=== PATIENT | male | born 1975 | race Caucasian/White ===

== ENCOUNTER 2017-12-08 11:14 | Emergency (ER) | payer SELFPAY ==
[~2017-12-08] VITALS: Ht 182.9 cm; Wt 102.1 kg
--- NOTE | 2017-12-08 11:30 | NUR ---
[id number]/[employer] FROM SENIOR [facility]IVING: SKIN BURN TO LLE. NOTED ETOH. VSS. SEEN BY BAKING ASSISTANT FOR EVAL. SAFETY AND COMFORT MEASURES PROVIDED. REMAINS ON CUFFS, [employer] OFFICERS AT BS.
--- NOTE | 2017-12-08 11:48 | NUR ---
IV ACCESS STARTED. BLOOD DRAWN FOR LABS. MEDICATED ORDERED.
[2017-12-08 11:52] LABS: BASOPHILS % (AUTO) 0.5 % (0.0-2.0); EOSINOPHILS % (AUTO) 9.6 % (0.0-6.0); HEMATOCRIT 48 % (39-51); HEMOGLOBIN 16.3 g/dL (13.5-17.5); LYMPHOCYTES # (AUTO) 1.7 /CMM (0.8-4.8); LYMPHOCYTES % (AUTO) 31.2 % (20.0-44.0); MEAN CORPUSCULAR HGB CONC 34 g/dl (31.0-36.0); MEAN CORPUSCULAR VOLUME 96 fL (80-96); MONOCYTES # (AUTO) 0.5 /CMM (0.1-1.30); MONOCYTES % (AUTO) 9.2 % (2.0-12.0); NEUTROPHILS # (AUTO) 2.8 /CMM (1.8-8.9); NEUTROPHILS % (AUTO) 49.5 % (43.0-81.0); PLATELET COUNT (AUTO) 241 /CMM (150-450); RDW COEFFICIENT OF VARIATION 12.6 (11.5-15.0); RED BLOOD CELL COUNT(AUTO) 4.96 MIL/uL (4.5-6.0); WHITE BLOOD COUNT (AUTO) 5.6 K/uL (4.3-11.0)
[2017-12-08 12:00] LABS: CALCIUM, SERUM 8.2 mg/dL (8.5-10.1); CREATININE 1.2 mg/dL (0.6-1.3); POTASSIUM 3.8 mmol/L (3.5-5.1)
[2017-12-08] MEDS ORDERED: TDAP [DIPH/PERTUSSIS/TET] 0.5 ML VIAL IM ONE ×2 (12:00→12:04)
[2017-12-08] MEDS ORDERED: IV NS 0.9% 1,000 ML BAG IV ONE (12:00)
[2017-12-08] MEDS ORDERED: PANTOPRAZOLE 80 MG in IV NS 0.9% 500 ML IV ONE (12:00)
[2017-12-08] MEDS ORDERED: SILVER SULFADIAZINE CREAM 25 GM TUBE TP ONE (12:00)
[2017-12-08] MEDS ORDERED: SILVER SULFADIAZINE CREAM 25 GM TUBE ONE (12:04)
[2017-12-08 12:06] LABS: ALBUMIN 3.8 g/dL (3.4-5.0); BILIRUBIN,DIRECT 0.1 mg/dL (0.0-0.2); BILIRUBIN,TOTAL 0.2 mg/dL (0.2-1.0); TOTAL PROTEIN, SERUM 6.6 g/dL (6.4-8.2)
[2017-12-08 12:08] LABS: INR 0.91 (0.85-1.15)
--- NOTE | 2017-12-08 12:44 | NUR ---
IV removed. Catheter intact and site benign. Pressure and 4x4 applied to site. No bleeding noted.
[2017-12-08 12:46] VITALS: BP 122/88
--- NOTE | 2017-12-08 12:46 | NUR ---
Patient discharged to home in stable condition. Written and verbal after care instructions given. Patient verbalizes understanding of instruction.
== END 2017-12-08 12:48 ==
LOC: ER 11:21
DX: T24.202A Burn of second degree of unspecified site of left lower limb, except ankle and foot, initial encounter (principal); K29.70 Gastritis, unspecified, without bleeding; F10.10 Alcohol abuse, uncomplicated; Y90.6 Blood alcohol level of 120-199 mg/100 ml; Z23 Encounter for immunization; X08.8XXA Exposure to other specified smoke, fire and flames, initial encounter; Y93.89 Activity, other specified; Y92.89 Other specified places as the place of occurrence of the external cause; Y99.8 Other external cause status
CPT/HCPCS: 36415; 71045; 80048; 80076; 85025; 85730; 90715; 96365; 99285; A4606; A6403; C9113; G0480; J7030; J7040; Z7610

== ENCOUNTER 2018-02-19 12:22 | Emergency (ER) | payer MEDICAID ==
[~2018-02-19] VITALS: Ht 182.9 cm; Wt 90.7 kg
[2018-02-19 12:25] VITALS: BP 146/97
[2018-02-19] MEDS ORDERED: oxyCODONE/APAP (5/325 MG) 1 UDTAB TABLET ONE (12:58)
[2018-02-19] MEDS ORDERED: OLANZAPINE 10 MG VIAL IM ONE ×2 (12:58→13:00)
[2018-02-19] MEDS ORDERED: WATER FOR INJECTION,STERILE 10 ML ONE (12:58)
[2018-02-19] MEDS ORDERED: oxyCODONE/APAP (5/325 MG) 1 UDTAB TABLET PO ONE (13:00)
[2018-02-19 13:03] LABS: BASOPHILS % (AUTO) 0.4 % (0.0-2.0); EOSINOPHILS % (AUTO) 0.6 % (0.0-6.0); HEMATOCRIT 49 % (39-51); HEMOGLOBIN 16.6 g/dL (13.5-17.5); LYMPHOCYTES # (AUTO) 0.8 /CMM (0.8-4.8); LYMPHOCYTES % (AUTO) 11.8 % (20.0-44.0); MEAN CORPUSCULAR HEMOGLOBIN 32 PG (26.0-33.0); MEAN CORPUSCULAR HGB CONC 34 g/dl (31.0-36.0); MEAN CORPUSCULAR VOLUME 93 fL (80-96); MONOCYTES # (AUTO) 0.7 /CMM (0.1-1.30); MONOCYTES % (AUTO) 9.6 % (2.0-12.0); NEUTROPHILS # (AUTO) 5.6 /CMM (1.8-8.9); NEUTROPHILS % (AUTO) 77.6 % (43.0-81.0); PLATELET COUNT (AUTO) 223 /CMM (150-450); RDW COEFFICIENT OF VARIATION 11.2 (11.5-15.0); RED BLOOD CELL COUNT(AUTO) 5.27 MIL/uL (4.5-6.0); WHITE BLOOD COUNT (AUTO) 7.1 K/uL (4.3-11.0)
[2018-02-19 13:14] LABS: CALCIUM, SERUM 8.9 mg/dL (8.5-10.1); CARBON DIOXIDE 27 mmol/L (21-32); CHLORIDE 102 mmol/L (98-107); CREATININE 0.9 mg/dL (0.6-1.3); GLUCOSE 94 mg/dL (74-106); POTASSIUM 3.6 mmol/L (3.5-5.1); SODIUM SERUM 136 mmol/L (136-145); UREA NITROGEN, BLOOD 18 mg/dL (7-18)
[2018-02-19 13:20] LABS: ACETAMINOPHEN 0 ug/ml (10-30); ALANINE AMINOTRANSFERASE 36 U/L (12-78); ALBUMIN 3.9 g/dL (3.4-5.0); ALCOHOL, BLOOD < 3 mg/dL (0-0); ALKALINE PHOSPHATASE 72 U/L (46-116); ASPARTATE AMINOTRANSFERASE 25 U/L (15-37); BILIRUBIN,DIRECT 0.1 mg/dL (0.0-0.2); BILIRUBIN,TOTAL 0.5 mg/dL (0.2-1.0); SALICYLATE 3.2 mg/dL (2.8-20.0); TOTAL PROTEIN, SERUM 6.7 g/dL (6.4-8.2)
[2018-02-19 14:02] LABS: APPEARANCE,URINE CLEAR (CLEAR); BILIRUBIN,URINE NEGATIVE (NEGATIVE); BLOOD, URINE NEGATIVE Ery/uL (NEGATIVE); COLOR,URINE YELLOW (YELLOW); KETONES,URINE 1+ (NEGATIVE); LEUKOCYTE ESTERASE ,URINE NEGATIVE (NEGATIVE); NITRITE, URINE NEGATIVE (NEGATIVE); PH,URINE 6.5 (5.0-8.0); PROTEIN,URINE NEGATIVE (NEGATIVE); UGLUCOSE NEGATIVE (NEGATIVE); UROBILINOGEN,URINE 0.2 EU/dL (0.2)
[2018-02-19 15:18] LABS: RBC,URINE 0-2 /HPF (0-2); WBC,URINE 0-2 /HPF (0-3)
[2018-02-19 15:19] LABS: BACTERIA,URINE None seen /HPF (None Seen); SQUAMOUS EPITHELIAL CELL,UR 0-2 /HPF (None Seen)
== END 2018-02-19 17:42 | disposition home or self-care (01) ==
LOC: ER 12:24
DX: F15.10 Other stimulant abuse, uncomplicated (principal); R45.851 Suicidal ideations; L55.0 Sunburn of first degree; F17.200 Nicotine dependence, unspecified, uncomplicated; F90.9 Attention-deficit hyperactivity disorder, unspecified type; F43.10 Post-traumatic stress disorder, unspecified
CPT/HCPCS: 36415; 80048; 80076; 80305; 80329; 81001; 85025; 96372; 99284; 99406; A4606; G0480 ×2; J3490; Z7610; 81000-TC

== ENCOUNTER → 2018-02-26 | Emergency (ER) | payer BC, MEDICAID ==
[~2018-02-26] VITALS: Ht 182.9 cm; Wt 108.9 kg
[~2018-02-26] MED LIST: POTASSIUM CHLORIDE 20 MEQ TAB.PRT.SR PO ONE; oxyCODONE/APAP (5/325 MG) 1 UDTAB TABLET ONE; oxyCODONE/APAP (5/325 MG) 1 UDTAB TABLET PO ONE
[2018-02-26 14:35] LABS: BASOPHILS % (AUTO) 0.5 % (0.0-2.0); EOSINOPHILS % (AUTO) 0.4 % (0.0-6.0); HEMATOCRIT 45 % (39-51); LYMPHOCYTES # (AUTO) 0.8 /CMM (0.8-4.8); LYMPHOCYTES % (AUTO) 16.1 % (20.0-44.0); MEAN CORPUSCULAR HEMOGLOBIN 31 PG (26.0-33.0); MEAN CORPUSCULAR HGB CONC 33 g/dl (31.0-36.0); MEAN CORPUSCULAR VOLUME 92 fL (80-96); MONOCYTES # (AUTO) 0.7 /CMM (0.1-1.30); MONOCYTES % (AUTO) 13.9 % (2.0-12.0); NEUTROPHILS # (AUTO) 3.6 /CMM (1.8-8.9); NEUTROPHILS % (AUTO) 69.1 % (43.0-81.0); PLATELET COUNT (AUTO) 296 /CMM (150-450); RDW COEFFICIENT OF VARIATION 11.2 (11.5-15.0); WHITE BLOOD COUNT (AUTO) 5.1 K/uL (4.3-11.0)
[2018-02-26 14:48] LABS: ALBUMIN 3.8 g/dL (3.4-5.0); BILIRUBIN,DIRECT 0.1 mg/dL (0.0-0.2); BILIRUBIN,TOTAL 0.2 mg/dL (0.2-1.0); CALCIUM, SERUM 8.5 mg/dL (8.5-10.1); POTASSIUM 3.3 mmol/L (3.5-5.1); SALICYLATE 3.4 mg/dL (2.8-20.0); TOTAL PROTEIN, SERUM 6.6 g/dL (6.4-8.2)
--- NOTE | 2018-02-26 15:48 | NUR ---
CALLED [facility] SIGNAL OPERATOR ETA OF 45 MINS WAS GIVEN.
--- NOTE | 2018-02-26 17:26 | NUR ---
PT SEEN BY PET TEAM NURSE WILL GO TO OUT LINING FACILITY ONCE DRUG SCREEN COMPLETED. URINE SENT FOR DRUG SCREEN PT PAIN ADDRESSED WITH MEDICATION REMAINS COOPEATIVE.
[2018-02-26 17:31] LABS: APPEARANCE,URINE Clear (CLEAR); BILIRUBIN,URINE Negative (NEGATIVE); BLOOD, URINE Negative Ery/uL (NEGATIVE); COLOR,URINE Yellow (YELLOW); KETONES,URINE Negative (NEGATIVE); LEUKOCYTE ESTERASE ,URINE Negative (NEGATIVE); NITRITE, URINE Negative (NEGATIVE); PH,URINE 5.5 (5.0-8.0); PROTEIN,URINE Negative (NEGATIVE); UGLUCOSE Negative (NEGATIVE); UROBILINOGEN,URINE 0.2 EU/dL (0.2)
--- NOTE | 2018-02-26 18:35 | NUR ---
CALLED [facility] FOR TRANSPORT ETA 1999 WAS GIVEN. TRIP#[id number]
--- NOTE | 2018-02-26 19:42 | NUR ---
REPORT GIVEN TO EMT ARLEY FOR [facility]. PT AWARE OF TRANSFER. ROOF PROMENADE TILE SETTER PROVIDED WITH D/C PAPERS. PT WITH ALL PERSONAL BELONGINGS. PT TO BE [facility]. PER ARLEY TOOK OVER CARE. VSS
--- NOTE | 2018-02-26 19:43 | NUR ---
CALLED [facility] SPOKE WITH JULIANNA FROM INTAKE. HE MENTIONED THAT THERE FAX SYSTEM IS DOWN. WE READ LAB RESULTS VERBALLY PRIOR TO PATIENTS DEPARTURE.
--- NOTE | 2018-02-26 19:48 | NUR ---
PT BEING TRANSPOTED BY boarding pass TO [facility] SIGNS STABLE REPORT GIVEN
[2018-02-26 19:50] VITALS: BP 136/94
== END ==
LOC: ER 13:51
DX: G89.4 Chronic pain syndrome (principal); F32.9 Major depressive disorder, single episode, unspecified; F15.10 Other stimulant abuse, uncomplicated; F90.9 Attention-deficit hyperactivity disorder, unspecified type; F43.10 Post-traumatic stress disorder, unspecified
CPT/HCPCS: 36415; 80048-TC; 80076-TC; 80305; 81000-TC; 85025-TC; A4606; G0480; Z7610

== ENCOUNTER 2018-03-03 21:15 | Emergency (ER) | payer BC, MEDICAID ==
[~2018-03-03] VITALS: Ht 185.4 cm; Wt 95.3 kg
--- NOTE | 2018-03-03 22:16 | NUR ---
URINE COLLECTED. CALLED LAB FOR RESIDENTIAL FINISH CARPENTER, INFORMED LAB ORDERS FOR BLOOD DRAW
--- NOTE | 2018-03-03 22:30 | NUR ---
LAB WITH PT FOR BLOOD DRAW.
[2018-03-03 22:42] LABS: APPEARANCE,URINE CLEAR (CLEAR); BILIRUBIN,URINE NEGATIVE (NEGATIVE); BLOOD, URINE NEGATIVE Ery/uL (NEGATIVE); KETONES,URINE NEGATIVE (NEGATIVE); LEUKOCYTE ESTERASE ,URINE NEGATIVE (NEGATIVE); NITRITE, URINE NEGATIVE (NEGATIVE); PROTEIN,URINE NEGATIVE (NEGATIVE); UGLUCOSE NEGATIVE (NEGATIVE); UROBILINOGEN,URINE 0.2 EU/dL (0.2)
[2018-03-03 22:43] LABS: COLOR,URINE STRAW (YELLOW)
[2018-03-03 22:51] LABS: WHITE BLOOD COUNT (AUTO) 8.6 K/uL (4.3-11.0)
[2018-03-03 22:52] LABS: BASOPHILS % (AUTO) 0.3 % (0.0-2.0); CALCIUM, SERUM 9.3 mg/dL (8.5-10.1); CARBON DIOXIDE 22 mmol/L (21-32); CHLORIDE 103 mmol/L (98-107); EOSINOPHILS % (AUTO) 0.2 % (0.0-6.0); GLUCOSE 91 mg/dL (74-106); HEMATOCRIT 47 % (39-51); HEMOGLOBIN 16.3 g/dL (13.5-17.5); LYMPHOCYTES % (AUTO) 14.6 % (20.0-44.0); MEAN CORPUSCULAR HEMOGLOBIN 32 PG (26.0-33.0); MEAN CORPUSCULAR HGB CONC 35 g/dl (31.0-36.0); MEAN CORPUSCULAR VOLUME 93 fL (80-96); MONOCYTES % (AUTO) 10.2 % (2.0-12.0); NEUTROPHILS % (AUTO) 74.7 % (43.0-81.0); PLATELET COUNT (AUTO) 301 /CMM (150-450); POTASSIUM 3.6 mmol/L (3.5-5.1); RDW COEFFICIENT OF VARIATION 12.4 (11.5-15.0); RED BLOOD CELL COUNT(AUTO) 5.09 MIL/uL (4.5-6.0); SODIUM SERUM 140 mmol/L (136-145); UREA NITROGEN, BLOOD 13 mg/dL (7-18)
[2018-03-03 22:57] LABS: ALANINE AMINOTRANSFERASE 43 U/L (12-78); ALBUMIN 4.4 g/dL (3.4-5.0); ALCOHOL, BLOOD 36 mg/dL (0-0); ALKALINE PHOSPHATASE 73 U/L (46-116); ASPARTATE AMINOTRANSFERASE 22 U/L (15-37); BILIRUBIN,DIRECT 0.1 mg/dL (0.0-0.2); BILIRUBIN,TOTAL 0.2 mg/dL (0.2-1.0); SALICYLATE 3.6 mg/dL (2.8-20.0); TOTAL PROTEIN, SERUM 7.4 g/dL (6.4-8.2)
[2018-03-03 22:58] LABS: ACETAMINOPHEN < 10 ug/ml (10-30)
--- NOTE | 2018-03-03 23:19 | NUR ---
BIBSELF AMBULATORY TO ER BED 14 C/O ANXIETY ATTACKS/ GENERAL BODY PAIN. +SI - HI, PLAN TO CUT WRIST. PT AOX3 RR EVEN AND UNLABORED. NO SOB NOTED. NAD NOTED. NO NVD AT THIS TIME. PT WAITING FOR MD PARK.
--- NOTE | 2018-03-04 01:30 | NUR ---
Pt accepted to [facility] by Dr Johnson. #[phone] for report
--- NOTE | 2018-03-04 01:39 | NUR ---
Ambulnz eta 90 min
--- NOTE | 2018-03-04 01:43 | NUR ---
REPORT GIVEN TO NAOMIE CHRISTIE FROM [facility]. INFORMED ETA MEDICAL ECONOMICS CONSULTANT 90 MINS.
--- NOTE | 2018-03-04 03:04 | NUR ---
AMBULNZ ETA 35MINS FROM NOW.
--- NOTE | 2018-03-04 04:21 | NUR ---
REPORT GIVEN TO [facility] EMT FOR [facility]. PT AWARE OF TRANSFER. VSS. PT WITH ALL PERSONAL BELONGINGS. PT [facility] BE [facility].
[2018-03-04 04:35] VITALS: BP 144/90
== END 2018-03-04 04:35 | disposition home or self-care (01) ==
LOC: ER 21:20
DX: R45.851 Suicidal ideations (principal); F41.9 Anxiety disorder, unspecified; F90.9 Attention-deficit hyperactivity disorder, unspecified type; F43.10 Post-traumatic stress disorder, unspecified
CPT/HCPCS: 36415; 80048; 80076; 80305; 80329; 81001; 85025; 99284; A4606; G0480 ×2; Z7610; 81000-TC

== ENCOUNTER 2018-04-15 09:54 | Emergency (ER) | payer BC, MEDICAID ==
[~2018-04-15] VITALS: Ht 185.4 cm; Wt 93.0 kg
--- NOTE | 2018-04-15 10:30 | NUR ---
PT BIB BY [facility] FOR SUICIDAL IDEATION WITH PLAN TO CUT WRISTS. PT NOT FEELING WELL NONCOMPLIANT WITH MEDICATIONS APPEARS HOMELESS MEDICAL HISTORY OF ADAH AND PTSD.
[2018-04-15 10:40] LABS: BASOPHILS % (AUTO) 0.7 % (0.0-2.0); EOSINOPHILS % (AUTO) 1.1 % (0.0-6.0); HEMATOCRIT 48 % (39-51); LYMPHOCYTES # (AUTO) 0.8 /CMM (0.8-4.8); MEAN CORPUSCULAR HGB CONC 33 g/dl (31.0-36.0); MEAN CORPUSCULAR VOLUME 90 fL (80-96); MONOCYTES # (AUTO) 0.6 /CMM (0.1-1.30); MONOCYTES % (AUTO) 9.7 % (2.0-12.0); NEUTROPHILS # (AUTO) 4.4 /CMM (1.8-8.9); NEUTROPHILS % (AUTO) 74.5 % (43.0-81.0); PLATELET COUNT (AUTO) 301 /CMM (150-450); RED BLOOD CELL COUNT(AUTO) 5.33 MIL/uL (4.5-6.0); WHITE BLOOD COUNT (AUTO) 5.9 K/uL (4.3-11.0)
[2018-04-15 10:41] LABS: APPEARANCE,URINE Clear (CLEAR); BILIRUBIN,URINE SMALL (NEGATIVE); BLOOD, URINE Negative Ery/uL (NEGATIVE); COLOR,URINE Yellow (YELLOW); KETONES,URINE Negative (NEGATIVE); LEUKOCYTE ESTERASE ,URINE Negative (NEGATIVE); NITRITE, URINE Negative (NEGATIVE); PH,URINE 6.5 (5.0-8.0); PROTEIN,URINE Negative (NEGATIVE); UGLUCOSE Negative (NEGATIVE)
[2018-04-15 10:53] LABS: CALCIUM, SERUM 8.7 mg/dL (8.5-10.1); CARBON DIOXIDE 29 mmol/L (21-32); CHLORIDE 104 mmol/L (98-107); CREATININE 1.1 mg/dL (0.6-1.3); GLUCOSE 98 mg/dL (74-106); POTASSIUM 3.5 mmol/L (3.5-5.1); SODIUM SERUM 140 mmol/L (136-145); UREA NITROGEN, BLOOD 13 mg/dL (7-18)
[2018-04-15 10:57] LABS: ALANINE AMINOTRANSFERASE 27 U/L (12-78); ALBUMIN 3.7 g/dL (3.4-5.0); ALKALINE PHOSPHATASE 71 U/L (46-116); ASPARTATE AMINOTRANSFERASE 13 U/L (15-37); BILIRUBIN,DIRECT 0.1 mg/dL (0.0-0.2); BILIRUBIN,TOTAL 0.3 mg/dL (0.2-1.0); TOTAL PROTEIN, SERUM 6.7 g/dL (6.4-8.2)
[2018-04-15 10:58] LABS: ACETAMINOPHEN < 10 ug/ml (10-30); ALCOHOL, BLOOD < 3 mg/dL (0-0)
[2018-04-15 11:00] LABS: BACTERIA,URINE Few /HPF (None Seen); MUCUS,URINE Many /LPF (None Seen); RBC,URINE NONE SEEN /HPF (0-2); SQUAMOUS EPITHELIAL CELL,UR None Seen /HPF (None Seen); WBC,URINE O /HPF (0-3)
[2018-04-15] MEDS ORDERED: CEFTRIAXONE 500 MG VIAL IM ONE (11:30)
[2018-04-15] MEDS ORDERED: AZITHROMYCIN 250 MG TABLET PO ONE (11:30)
[2018-04-15] MEDS ORDERED: PENICILLIN G BENZATHINE 2.4 MMU/4 ML ML IM ONE ×3 (11:30→11:48)
[2018-04-15] MEDS ORDERED: AZITHROMYCIN 500 MG VIAL ONE (11:43)
[2018-04-15] MEDS ORDERED: CEFTRIAXONE 500 MG VIAL ONE (11:48)
[2018-04-15] MEDS ORDERED: AZITHROMYCIN 250 MG TABLET ONE (11:48)
--- NOTE | 2018-04-15 12:01 | NUR ---
PT SEEN BY MD EVALUATED MEDICATIONS ORDERED AND GIVEN PT ALSO GIVEN MEAL TRAY AND WATER. PT CURRENTLY BEING EVALUATED BY PSYCH NURSE.
[2018-04-15] MEDS ORDERED: CT SWABBABLE VALVE TRANS SET 1 EA INFUS.SET MC ONE (12:22)
[2018-04-15] MEDS ORDERED: IV NS 0.9% 250 ML IV ONE (12:22)
[2018-04-15] MEDS ORDERED: IOHEXOL-300 100 ML VIAL IV ONE (12:22)
--- NOTE | 2018-04-15 14:33 | NUR ---
PT RESTING QUIETLY WAITING FOR RE-EVALUATION ALL MEDICATIONS GIVEN ORDERED ALONG WITH MEAL TRAY
[2018-04-15] MEDS ORDERED: IBUPROFEN 600 MG TABLET PO ONE ×2 (15:00→15:04)
--- NOTE | 2018-04-15 16:25 | NUR ---
PUBLICITY PERSON EVALIATOR RE-EVALUATING PT THEN SPOKE WITH ELEONORA FROM [facility] RN WHO WILL CALL BACK WHEN BED OPENS UP
--- NOTE | 2018-04-15 16:51 | NUR ---
SPOKE AGAIN WITH TAYA INTAKE NURSE AT [facility] WHO WILL FORWARD INFORMATION AND CALL FOR BED PLACEMENT
--- NOTE | 2018-04-15 17:06 | NUR ---
PT ACCEPTED AT [facility] ACCEPTING PSYCHIATRIST CHRISTIAN. TELEPHONE: EXTENSION 203 SPOKE WITH OPHELIA AND GAVE RN REPORT CALLING TRANSPORTATION ETA AROUND 1.5 HOURS.
--- NOTE | 2018-04-15 17:16 | NUR ---
CALLED [facility] FOR THIS PATIENT ETA 1830 HOURS TRIP #[id number]
--- NOTE | 2018-04-15 18:10 | NUR ---
PT RESTING QUIETLY WAITING TRANSPORT TO [facility]
--- NOTE | 2018-04-15 19:16 | NUR ---
[facility] HERE TO TRANSPORT PT TO [facility]. PIV REMOVED FROM LEFT AC WITH TIP INTACT RIG NUMBER:[id number]
[2018-04-15 19:18] VITALS: BP 137/77
[2018-04-20 14:36] LABS: *HIV-1 RNA BY PCR <20 copies/mL (.)
== END 2018-04-15 19:19 | disposition short-term general hospital (02) ==
LOC: ER 09:56
DX: N49.2 Inflammatory disorders of scrotum (principal); F32.9 Major depressive disorder, single episode, unspecified; F15.10 Other stimulant abuse, uncomplicated; F13.10 Sedative, hypnotic or anxiolytic abuse, uncomplicated; F90.9 Attention-deficit hyperactivity disorder, unspecified type; F43.10 Post-traumatic stress disorder, unspecified; Z59.0 Homelessness
CPT/HCPCS: 36415; 74177; 80048; 80076; 80305; 80329; 81001; 85025; 87491; 87536; 87591; 96372 ×2; 99285; G0480 ×2; J0558; J0696; J7050; Q9967; 81000-TC; A4606; J0456; Z7610

== ENCOUNTER 2021-11-17 08:39 | Emergency (ER) | payer BC, MEDICAID ==
[~2021-11-17] VITALS: Ht 185.4 cm; Wt 104.3 kg
--- NOTE | 2021-11-17 08:49 | NUR ---
COVID TEST COLLECTED AND SENT
--- NOTE | 2021-11-17 08:56 | NUR ---
URINE SENT TO LAB
[2021-11-17 09:35] LABS: BILIRUBIN,URINE NEGATIVE (NEGATIVE); COLOR,URINE YELLOW (YELLOW); LEUKOCYTE ESTERASE ,URINE NEGATIVE (NEGATIVE); NITRITE, URINE NEGATIVE (NEGATIVE); PH,URINE 6.5 (5.0-8.0); PROTEIN,URINE NEGATIVE (NEGATIVE); UGLUCOSE NEGATIVE (NEGATIVE)
[2021-11-17 09:36] LABS: BASOPHILS % (AUTO) 0.7 % (0.0-2.0); EOSINOPHILS % (AUTO) 4.6 % (0.0-6.0); HEMATOCRIT 43 % (39-51); HEMOGLOBIN 14.6 g/dL (13.5-17.5); LYMPHOCYTES # (AUTO) 0.9 K/uL (0.8-4.8); LYMPHOCYTES % (AUTO) 13.7 % (20.0-44.0); MEAN CORPUSCULAR HGB CONC 34 g/dl (31.0-36.0); MEAN CORPUSCULAR VOLUME 91 fL (80-96); MONOCYTES # (AUTO) 0.7 K/uL (0.1-1.30); MONOCYTES % (AUTO) 11.2 % (2.0-12.0); NEUTROPHILS # (AUTO) 4.6 K/uL (1.8-8.9); NEUTROPHILS % (AUTO) 69.8 % (43.0-81.0); PLATELET COUNT (AUTO) 259 K/uL (150-450); RED BLOOD CELL COUNT(AUTO) 4.69 MIL/uL (4.5-6.0); WHITE BLOOD COUNT (AUTO) 6.6 K/uL (4.3-11.0)
[2021-11-17 10:13] LABS: CARBON DIOXIDE 26 mmol/L (21-32); CHLORIDE 103 mmol/L (98-107); POTASSIUM 3.6 mmol/L (3.5-5.1); SODIUM SERUM 141 mmol/L (136-145)
[2021-11-17 10:14] LABS: ACETAMINOPHEN 0 ug/ml (10-30); ALANINE AMINOTRANSFERASE 44 U/L (12-78); ALBUMIN 4.6 g/dL (3.4-5.0); ALCOHOL, BLOOD < 3 mg/dL (0-0); ALKALINE PHOSPHATASE 76 U/L (46-116); ASPARTATE AMINOTRANSFERASE 31 U/L (15-37); BILIRUBIN,DIRECT 0.1 mg/dL (0.0-0.2); BILIRUBIN,TOTAL 0.6 mg/dL (0.2-1.0); CALCIUM, SERUM 8.9 mg/dL (8.5-10.1); CREATININE 0.9 mg/dL (0.6-1.3); GLUCOSE 83 mg/dL (74-106); TOTAL PROTEIN, SERUM 7.2 g/dL (6.4-8.2); UREA NITROGEN, BLOOD 16 mg/dL (7-18)
--- NOTE | 2021-11-17 10:51 | NUR ---
SS consult: SS Consult requested for SI and homelessness. The pt. is a 46-year-old male patient who came into ED due to: suicidal ideation per EMR. Upon SS consult, the pt. is Alert & Oriented x 3 and makes good eye contact. The pt. appears unkempt with very unburned face, depressed mood & affect. Pt.'s speech is clear. Per pt. he states he is having thoughts of suicide with a plan to run into traffic per pt. Pt. denies HI and denies hallucinations. SW offered patient voluntary admission to psychiatric facility for treatment and pt. is agreeable. SW explored pt.'s living situation. Patient states he is currently experiencing homelessness. SW explored pt.'s mental health Hx. Patient stated that he has been diagnosed with Schizoaffective Disorder, ADHD, & PTSD and states he has been prescribed medication but cannot remember the names. SW provided resources for alf placement & homelessness and pt. accepted them. SW explored pt.'s drug & ETOH use. Pt. denies any drug or alcohol use. Per pt. he is ambulatory and independent with all his ADL's. SW explored pt.'s support system. Pt. states he has no family or friends. Plan: Pt. was referred pt. to [facility] [[address] [place] [address] FAX:[phone]] for inpatient psychiatric treatment. Pt. was provided with mental health & homeless resources and pt. accepted them. Pt. signed homeless waiver and it was placed in the chart. Year-round shelters: [facility] [address] [place] [address] ; [facility] [address] [place] [address]; [place] [facility] [id number] [facility]. [facility] [address] Hygiene: [facility]: [address] ; [facility] [address] [facility] ; [facility] [address] . Food Resources: [place] [facility] at [facility]- [address]. [place]; Meet Each Need with Dignity ([facility]) [address] [place]; [facility] Food [facility]ry 1105 [facility]; [facility] [address] [place] [facility] [place]. Mental Health resources provided: [facility] [address] [place], [place] [address] ; [facility] [address] [facility] [address], [place], [place] [id number] ; [facility] [address] [place], [place] [id number] ; [facility] [address] [place], [place] [address] Healthcare Clinics: [facility] [address] [facility], [address] [place]. [place] ; [facility] [address] [facility] [address] [place] [address]; [facility] [employer] [facility] [address] [facility]. [place] [phone] Counseling--Outpatient [facility] [address] [facility], [address] [place], [place] [address] (Specializes in in-depth psychotherapy for emotional distress: anxiety, depression, interpersonal conflicts, life transitions, childhood abuse) [facility] [address] [place], [place] [phone] (Assist with solving problem marital difficulties, separation & divorce, aging parents, & grief, chronic & terminal illness) [facility] [address] [place] [address] (Deal with loss & grief, anxiety, marital difficulties) Homebound/Mental Health Services [address] [facility], [address] [place], [place] [address] (Provide in-home mental services to people who are incapable of leaving their homes) [facility] for Needs of the Elderly Senior Service/Resource Center [address] [place] [address] [facility] [address] [place] [address] PSYCHIATRIC OUTPATIENT SERVICES [facility] Partial Hospitalization and Intensive Outpatient Program (Managed Care and Cotton Only)[address] [facility] [phone] [facility] Partial Hospitalization and Outpatient [id number] [place], [place] [phone] [facility] Mental Health Reliance [id number] [facility]. [address] [place], [place] [phone] [facility] Partial Hospitalization and Outpatient [id number] [facility] beth, [phone] Substance Abuse resources provided included: [facility] Substance Abuse Self-Helpline ([facility]) ; CRI -HELP [address] [facility]. [place] [address] ; [facility] [address] [facility] [address] ; [facility] [address] [facility] [id number] ; [facility] 400 [facility] [phone] ; [facility] 4940 [facility] [phone] ; [facility] 909 [facility] [phone] ; [facility] Substance Abuse Helpline([facility])-[facility] ; [facility] ; [facility] [place]; [facility] [place]; [facility] [place]; [facility] Reza Randy; [facility] [place]; [place]; [facility] [address] [place]; [facility], [facility]. Genia Mendoza; Alcoholics Anonymous -[facility]; Shayy ; Marijuana Anonymous -[facility]; Narcotics Anonymous [email or web address];
[2021-11-17 10:59] LABS: BACTERIA,URINE None seen /HPF (None Seen); MUCUS,URINE Moderate /LPF (None Seen); RBC,URINE NONE SEEN /HPF (0-2); SQUAMOUS EPITHELIAL CELL,UR None Seen /HPF (None Seen); WBC,URINE 0-2 /HPF (0-3)
--- NOTE | 2021-11-17 16:09 | NUR ---
JULIETA called [employer] TEL:[phone] for update regarding admission to [facility]. Per May's request, JULIETA refaxed clincials with updated insurance on facesheet.
--- NOTE | 2021-11-18 02:08 | NUR ---
REFAXED CLINICALS TO [facility]
--- NOTE | 2021-11-18 02:30 | NUR ---
PT ACCEPTED AT [facility] / DR. KNIGHT / ROOM ASSIGNMENT GIVEN AT REPORT / NUMBER FOR REPORT:
--- NOTE | 2021-11-18 02:35 | NUR ---
[facility] ETA 60-90 MINS.
--- NOTE | 2021-11-18 04:09 | NUR ---
REPORT GIVEN TO NAOMIE ALONSO FOR [facility] AT [facility]
[2021-11-18 04:34] VITALS: BP 121/80
== END 2021-11-18 04:35 ==
LOC: ER 08:39
DX: R45.851 Suicidal ideations (principal); Z20.822 Contact with and (suspected) exposure to COVID-19; Z59.00 Homelessness unspecified; L55.9 Sunburn, unspecified
CPT/HCPCS: 36415; 80048; 80076; 80143; 80307; 80320; 81001; 85025; 87426; 99285; C9803; G0480

== ENCOUNTER 2021-11-25 17:09 | Emergency (ER) | payer MEDICAID ==
[~2021-11-25] VITALS: Ht 185.4 cm; Wt 104.3 kg
--- NOTE | 2021-11-25 17:39 | NUR ---
BIBS FOR FOR SI WITH PLAN WITH RUN INTO TRAFFIC. DENIES DI. DENIES HALLUCINATIONS. GOT DISCHARGED FROM [facility]. THE PATIENT IS ALERT AND ORIENTED X4. IN ROOM AIR AND DENIES SOB. RESPIRATION REGULAR AND UNLABORED. WILL CONTINUE TO MONITOR THE PATIENT.
[2021-11-25 18:01] LABS: BASOPHILS % (AUTO) 0.4 % (0.0-2.0); EOSINOPHILS % (AUTO) 3.8 % (0.0-6.0); HEMATOCRIT 43 % (39-51); HEMOGLOBIN 14.9 g/dL (13.5-17.5); LYMPHOCYTES % (AUTO) 15.2 % (20.0-44.0); MEAN CORPUSCULAR HGB CONC 35 g/dl (31.0-36.0); MEAN CORPUSCULAR VOLUME 92 fL (80-96); MONOCYTES # (AUTO) 0.7 K/uL (0.1-1.30); MONOCYTES % (AUTO) 11.4 % (2.0-12.0); NEUTROPHILS # (AUTO) 4.4 K/uL (1.8-8.9); NEUTROPHILS % (AUTO) 69.2 % (43.0-81.0); PLATELET COUNT (AUTO) 256 K/uL (150-450); WHITE BLOOD COUNT (AUTO) 6.3 K/uL (4.3-11.0)
[2021-11-25 18:13] LABS: ALANINE AMINOTRANSFERASE 46 U/L (12-78); ALBUMIN 4.6 g/dL (3.4-5.0); ALKALINE PHOSPHATASE 73 U/L (46-116); ASPARTATE AMINOTRANSFERASE 19 U/L (15-37); BILIRUBIN,DIRECT 0.1 mg/dL (0.0-0.2); BILIRUBIN,TOTAL 0.5 mg/dL (0.2-1.0); CALCIUM, SERUM 9.1 mg/dL (8.5-10.1); CARBON DIOXIDE 30 mmol/L (21-32); CHLORIDE 103 mmol/L (98-107); CREATININE 1.2 mg/dL (0.6-1.3); GLUCOSE 96 mg/dL (74-106); POTASSIUM 3.9 mmol/L (3.5-5.1); SODIUM SERUM 139 mmol/L (136-145); TOTAL PROTEIN, SERUM 7.5 g/dL (6.4-8.2); UREA NITROGEN, BLOOD 17 mg/dL (7-18)
[2021-11-25 18:20] LABS: ALCOHOL, BLOOD < 3 mg/dL (0-0)
--- NOTE | 2021-11-25 19:40 | NUR ---
COVID SWAB DONE AND SENT TO LAB
--- NOTE | 2021-11-25 20:08 | NUR ---
URINE SAMPLE COLLECTED AND ANS SENT TO LAB
[2021-11-25 20:32] LABS: BILIRUBIN,URINE NEGATIVE (NEGATIVE); COLOR,URINE YELLOW (YELLOW); LEUKOCYTE ESTERASE ,URINE NEGATIVE (NEGATIVE); NITRITE, URINE NEGATIVE (NEGATIVE); PH,URINE 5.5 (5.0-8.0); PROTEIN,URINE NEGATIVE (NEGATIVE); UGLUCOSE NEGATIVE (NEGATIVE); UROBILINOGEN,URINE 0.2 EU/dL (0.2)
[2021-11-26] VITALS: BP 123/71
--- NOTE | 2021-11-26 00:07 | NUR ---
CLINICALS FAXED TO [facility]
--- NOTE | 2021-11-26 03:18 | NUR ---
PT ACCEPTED TO [facility] PER [facility] MAY ACCEPTED UNDER DR. TAMICA ALONSO RN FOR REPORT [phone]
--- NOTE | 2021-11-26 03:22 | NUR ---
REPORT GIVEN TO GAVIN AKBAR FROM [facility] FOR [facility]
--- NOTE | 2021-11-26 03:24 | NUR ---
[facility] CALLED FOR BLS TRANPORT TO [facility] PER JACK - ETA >30 MIN
--- NOTE | 2021-11-26 04:00 | NUR ---
REPORT GIVEN TO EMS AT BEDSIDE.
== END 2021-11-26 04:11 ==
LOC: ER 17:23
DX: R45.851 Suicidal ideations (principal); F20.9 Schizophrenia, unspecified; F31.9 Bipolar disorder, unspecified; M06.9 Rheumatoid arthritis, unspecified; Z59.00 Homelessness unspecified; Z20.822 Contact with and (suspected) exposure to COVID-19; F43.10 Post-traumatic stress disorder, unspecified
CPT/HCPCS: 36415; 80048; 80076; 80143; 80307; 80320; 81003; 85025; 87426; 99285; C9803; G0480

== ENCOUNTER 2021-11-30 15:35 | Emergency (ER) | payer MEDICAID ==
[~2021-11-30] VITALS: Ht 185.4 cm; Wt 104.8 kg
--- NOTE | 2021-11-30 16:00 | NUR ---
TO ER BED 18. BIBS C/O SI WITH PLAN TO RUN TOWARDS MOVING TRAFFIC, WANTS VOLUNTARY ADMISSION. AAOX4, AMBULATORY WITH STEADY GAIT. NON COMBATIVE AND FOLLOWS DIRECTION. ALL BELONGINGS OBTAINED AND SECURED IN LOCKER. CONNECTED TO MONITOR. 1:1 SITTER.
[2021-11-30 16:24] LABS: BILIRUBIN,URINE NEGATIVE (NEGATIVE); COLOR,URINE YELLOW (YELLOW); LEUKOCYTE ESTERASE ,URINE NEGATIVE (NEGATIVE); NITRITE, URINE NEGATIVE (NEGATIVE); PROTEIN,URINE NEGATIVE (NEGATIVE); UGLUCOSE NEGATIVE (NEGATIVE); UROBILINOGEN,URINE 0.2 EU/dL (0.2)
[2021-11-30 16:50] LABS: BASOPHILS % (AUTO) 0.6 % (0.0-2.0); HEMATOCRIT 44 % (39-51); HEMOGLOBIN 15.4 g/dL (13.5-17.5); LYMPHOCYTES # (AUTO) 1.1 K/uL (0.8-4.8); LYMPHOCYTES % (AUTO) 16.3 % (20.0-44.0); MEAN CORPUSCULAR HGB CONC 35 g/dl (31.0-36.0); MEAN CORPUSCULAR VOLUME 91 fL (80-96); MONOCYTES # (AUTO) 0.7 K/uL (0.1-1.30); MONOCYTES % (AUTO) 9.4 % (2.0-12.0); NEUTROPHILS # (AUTO) 4.9 K/uL (1.8-8.9); NEUTROPHILS % (AUTO) 71.7 % (43.0-81.0); PLATELET COUNT (AUTO) 290 K/uL (150-450); RED BLOOD CELL COUNT(AUTO) 4.84 MIL/uL (4.5-6.0); WHITE BLOOD COUNT (AUTO) 6.9 K/uL (4.3-11.0)
[2021-11-30 17:25] LABS: ALANINE AMINOTRANSFERASE 43 U/L (12-78); ALBUMIN 4.5 g/dL (3.4-5.0); ALCOHOL, BLOOD < 3 mg/dL (0-0); ALKALINE PHOSPHATASE 74 U/L (46-116); ASPARTATE AMINOTRANSFERASE 15 U/L (15-37); BILIRUBIN,DIRECT 0.1 mg/dL (0.0-0.2); BILIRUBIN,TOTAL 0.4 mg/dL (0.2-1.0); CALCIUM, SERUM 9.2 mg/dL (8.5-10.1); CARBON DIOXIDE 24 mmol/L (21-32); CHLORIDE 105 mmol/L (98-107); CREATININE 1.2 mg/dL (0.6-1.3); GLUCOSE 93 mg/dL (74-106); POTASSIUM 3.8 mmol/L (3.5-5.1); SODIUM SERUM 140 mmol/L (136-145); TOTAL PROTEIN, SERUM 7.4 g/dL (6.4-8.2); UREA NITROGEN, BLOOD 19 mg/dL (7-18)
[2021-11-30 17:44] LABS: ACETAMINOPHEN < 2 ug/ml (10-30)
--- NOTE | 2021-11-30 18:10 | NUR ---
PT RESTING COMFORTABLY IN BED, DENIES ANY PAIN AT THIS TIME. WILL CONTINUE TO MONITOR
--- NOTE | 2021-11-30 18:12 | NUR ---
COVID ANTIGEN SWAB COLLECTED AND SENT TO LAB
[2021-11-30] MEDS ORDERED: HYDROCODONE/APAP 5/325MG TABLET PO ONE (19:00)
[2021-11-30] MEDS ORDERED: HYDROCODONE/APAP 5/325MG TABLET ONE (19:03)
--- NOTE | 2021-11-30 19:13 | NUR ---
FAXED CLINICALS TO [facility] PENDING COVID RESULT.
--- NOTE | 2021-11-30 19:19 | NUR ---
COVID RESULT FAXED TO [facility].
[2021-11-30] MEDS ORDERED: clonazePAM 1 MG TABLET PO ONE (20:30)
[2021-11-30] MEDS ORDERED: clonazePAM 0.5 MG TABLET ONE (20:35)
[2021-11-30] MEDS ORDERED: clonazePAM 0.5 MG TABLET PO ONE (21:00)
[2021-12-01] MEDS ORDERED: HYDROCODONE/APAP 5/325MG TABLET ONE ×2 (09:57→18:27)
[2021-12-01] MEDS ORDERED: HYDROCODONE/APAP 5/325MG TABLET PO ONE ×2 (10:00→17:30)
--- NOTE | 2021-12-01 10:35 | NUR ---
JULIETA called [employer] TEL:[phone] to get update [facility] Per Griselda from intake the pt. has been accepted to [facility]. Griselda stated she will call ED witht the acceptance details. Noted.
[2021-12-01] MEDS ORDERED: clonazePAM 1 MG TABLET ONE ×2 (11:35→19:44)
[2021-12-01] MEDS ORDERED: clonazePAM 1 MG TABLET PO ONE ×2 (12:00→19:30)
--- NOTE | 2021-12-01 14:57 | NUR ---
Jax novoa in EDM - 12/01/21 at 1500 by RBATACLAN CALLED [facility] AND WAS NOTIFIED OF PT ACCEPTANCE UNDER THE CARE OF DR. SIDDIQI NUMBER FOR REPORT [phone] EXT [phone]
--- NOTE | 2021-12-01 15:00 | NUR ---
CALLED [facility] AND SET UP BLS TRANSPORT ETA 1999
--- NOTE | 2021-12-01 15:00 | NUR ---
CALLED [facility] AND WAS NOTIFIED OF PT ACCEPTANCE UNDER THE CARE OF DR. SIDDIQI NUMBER FOR REPORT [phone] EXT [phone] GIVE REPORT AFTER 193
[2021-12-01 20:00] VITALS: BP 125/86
--- NOTE | 2021-12-01 20:13 | NUR ---
REPORT GIVEN TO JANICE AT [facility]
--- NOTE | 2021-12-01 20:20 | NUR ---
[facility] AT BEDSIDE FOR TRANSPORT TO [facility].
== END 2021-12-01 20:20 ==
LOC: ER 15:42
DX: R45.851 Suicidal ideations (principal); G89.29 Other chronic pain; M54.50 Low back pain, unspecified; Z20.822 Contact with and (suspected) exposure to COVID-19; Z81.8 Family history of other mental and behavioral disorders; M06.9 Rheumatoid arthritis, unspecified; Z87.820 Personal history of traumatic brain injury; F32.A Depression, unspecified; F90.9 Attention-deficit hyperactivity disorder, unspecified type; M25.50 Pain in unspecified joint
CPT/HCPCS: 36415; 80048; 80076; 80143; 80307; 80320; 81003; 85025; 87426; 99285; C9803; G0480